=== PATIENT | female | born 2000 | race Caucasian/White ===

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

== ENCOUNTER 2020-02-13 02:05 | Emergency (ER) | payer BC ==
[~2020-02-13] VITALS: Ht 157.5 cm; Wt 54.5 kg
[2020-02-13 02:11] VITALS: BP 129/87; PULSE 91; TEMP 97.6
[2020-02-13 03:14] LABS: COLLECTION METHOD CLEAN CATCH
[2020-02-13 03:24] LABS: PH 6 (5-8); SQUAMOUS EPITHELIAL None Seen /hpf; URINE APPEARANCE Clear; URINE BACTERIA None Seen /hpf; URINE BILIRUBIN Negative (NEGATIVE); URINE BLOOD Negative (NEGATIVE); URINE COLOR Straw; URINE GLUCOSE Negative (NEGATIVE); URINE KETONE Negative (NEGATIVE); URINE LEUKOCYTE ESTERASE Negative (NEGATIVE); URINE NITRATE Negative (NEGATIVE); URINE PROTEIN(semi-quant) Negative (NEGATIVE); URINE RBC 0-2 /hpf; URINE UROBILINOGEN Negative (NEGATIVE)
== END 2020-02-13 03:30 | disposition home or self-care (01) ==
LOC: COL.ER
PROVIDERS: Physician Assistant
DX: T76.21XA Adult sexual abuse, suspected, initial encounter (principal); F10.920 Alcohol use, unspecified with intoxication, uncomplicated; Z20.2 Contact with and (suspected) exposure to infections with a predominantly sexual mode of transmission